=== PATIENT | male | born 1960 | race Caucasian/White ===

== ENCOUNTER 2016-04-28 17:18 | Emergency (ER) | payer BC | END 2016-04-28 21:06 | disposition home or self-care (01) | LOC: ER 17:18 | DX: I48.0 Paroxysmal atrial fibrillation (principal); R50.9 Fever, unspecified; N39.0 Urinary tract infection, site not specified; Z79.899 Other long term (current) drug therapy; Z79.82 Long term (current) use of aspirin; Z88.1 Allergy status to other antibiotic agents | CPT/HCPCS: 36415; 87502; 96361; 96374; 96375 ==